=== PATIENT | male | born 1980 | race Caucasian/White ===

== ENCOUNTER 2022-09-27 18:52 | Emergency (ER) | payer SELFPAY ==
[2022-09-27 19:33] LABS: #Basophils 0.1 10x3/uL (0.0-0.2); #Eosinphils 0.4 10x3/uL (0.0-0.5); #Monocytes 0.7 10x3/uL (0.0-1.1); #Neutrophils 3.7 10x3/uL (1.5-8.4); %Eosinophils 5.3 % (0.0-6.0); %Lymphocytes 33.5 % (18.0-47.0); %Monocytes 9.8 % (0.0-10.0); %Neutrophils 50.3 % (40.0-75.0); Hemoglobin 14.9 g/dL (13.5-17.5); Mean Corpuscular HGB CONC 35.1 g/dL (32.0-36.0); Mean Corpuscular Hemoglobin 30.6 pg (27.0-33.0); Mean Corpuscular Volume 87.1 fl (81.2-95.1); Mean Platelet Volume 9.6 fl (7.4-10.4); Platelet Count 357 10x3/uL (150-450); RBC Distribution Width 12.4 % (11.5-14.5); Red Blood Cell (RBC) Count 4.87 10x6/uL (4.32-5.72); White Blood Cell (WBC) Count 7.3 10x3/uL (3.5-10.5)
[2022-09-27 19:44] LABS: Anion Gap 17 mmol/L (10-20); BUN (Urea Nitrogen) 10 mg/dL (8.9-20.6); Calc. Creatinine Clearance 0 mL/min (70-130); Carbon Dioxide 19 mmol/L (22-29); Chloride 108 mmol/L (98-107); Potassium 2.8 mmol/L (3.5-5.1); Sodium 141 mmol/L (136-145)
[2022-09-27 19:45] LABS: ALT (SGPT) 78 U/L (8-55); AST (SGOT) 46 U/L (5-34); Albumin 4.4 g/dL (3.5-5.0); Alkaline Phosphatase 108 U/L (40-110); Bilirubin, Total 0.7 mg/dL (0.2-1.2); CK (CPK) 154 U/L (30-200); Calcium 9.4 mg/dL (7.8-10.44); Estimated GFR 114; Globulin 3.3 g/dL (2.4-3.5); Glucose 78 mg/dL (70-105); Magnesium 2.5 mg/dL (1.6-2.6); Protein, Total 7.7 g/dL (6.0-8.3)
== END 2022-09-27 20:19 | disposition home or self-care (01) ==
LOC: CSHERS 18:52
DX: R55 Syncope and collapse (principal); R00.2 Palpitations; F17.200 Nicotine dependence, unspecified, uncomplicated
CPT/HCPCS: 36415; 71045; 80053; 82550; 83735; 84484; 85025; 93005